=== PATIENT | male | born 1965 | race Hispanic/Latino ===

== ENCOUNTER 2020-04-05 13:04 | Emergency (ER) | payer BC ==
[~2020-04-05] VITALS: Ht 165.1 cm; Wt 70.5 kg
[~2020-04-05 13:04] MED LIST: NEO-SYNEPHRI0.05 %; NO HOME MEDS; NORVASC PO
[2020-04-05] MEDS ORDERED: LISINOPRIL10 M1 PO (13:42)
[2020-04-05] MEDS ORDERED: ATORVASTATIN CA20 MG PO (13:42)
[2020-04-05 13:52] LABS: HEMATOCRIT 36.3 % (39.0-50.0); HEMOGLOBIN 12.1 g/dl (14.0-18.0); MEAN CELL VOLUME 101.4 fL CALC (80.0-100.0); MEAN CORPUSCULAR HGB 33.8 pG CALC (26.0-32.0); MEAN CORPUSCULAR HGB CONC 33.3 g/dL CAL (32.0-36.0); NEUT# 1.27 thou/uL (1.82-7.42); RED BLOOD COUNT 3.58 mill/uL (4.70-6.10); RED CELL DISTRI WIDTH 14.9 % (11.5-15.5)
[2020-04-05 14:02] LABS: ALBUMIN 4.4 g/dL (3.2-5.0); ALKALINE PHOSPHATASE 128 u/l (38-126); ANION GAP 17 (6-22 (CALC)); BILIRUBIN, TOTAL 0.3 mg/dL (0.0-1.4); BUN 10 mg/dL (9-20); BUN/CREATININE RATIO 16 (12-20 (CALC)); CARBON DIOXIDE 23 mmol/l (22-30); CHLORIDE 103 mmol/l (95-108); CREATININE 0.6 mg/dL (0.7-1.3); ETHYL ALCOHOL 222 mg/dl (0-30); GFR > 60 ML/MIN (>=60 (CALC)); GFR FOR AFR.AMER. > 60 ML/MIN (>=60 (CALC)); POTASSIUM 4.2 mmol/l (3.5-5.1); SGOT/AST 75 u/l (17-59); SODIUM 139 mmol/l (137-146); TOTAL PROTEIN 8.3 g/dL (6.3-8.2)
[2020-04-05 15:06] LABS: URINE BILIRUBIN - DIPSTICK NEGATIVE (NEGATIVE); URINE BLOOD DIPSTICK NEGATIVE (NEGATIVE); URINE COLOR YELLOW; URINE GLUCOSE - DIPSTICK NEGATIVE (NEGATIVE); URINE KETONE NEGATIVE (NEGATIVE); URINE LEUK ESTERASE NEGATIVE (NEGATIVE); URINE NITRITE - DIPSTICK NEGATIVE (Negative); URINE PROTEIN - DIPSTICK NEGATIVE (NEG-TRACE); URINE UROBILINOGEN - DIPSTICK 0.2 E.U./dL (0.2)
[2020-04-05 17:10] VITALS: BP 142/63
== END 2020-04-05 17:10 | disposition short-term general hospital (02) | DRG 66 ==
LOC: ED 13:04
DX: I62.00 Nontraumatic subdural hemorrhage, unspecified (principal); F10.20 Alcohol dependence, uncomplicated; R25.1 Tremor, unspecified; I10 Essential (primary) hypertension

== ENCOUNTER 2022-09-02 22:23 | Emergency (ER) | payer OTHER ==
[~2022-09-02] VITALS: Ht 165.1 cm; Wt 75.7 kg
[~2022-09-02 22:23] MED LIST changes: +ATORVASTATIN CA20 MG PO; +LISINOPRIL10 M1 PO
[2022-09-02 22:33] VITALS: BP 131/79
[2022-09-02 22:46] VITALS: BP 119/67
[2022-09-02 23:00] VITALS: BP 124/80
[2022-09-02 23:15] VITALS: BP 116/79
[2022-09-02 23:30] VITALS: BP 119/70
[2022-09-03] MEDS ORDERED: METHOCARBAMOL500 MG PO (00:23)
[2022-09-03 00:58] VITALS: BP 119/70
== END 2022-09-03 01:06 | disposition home or self-care (01) | DRG 556 ==
LOC: ED 22:23
DX: M25.512 Pain in left shoulder (principal); M54.2 Cervicalgia; V43.52XA Car driver injured in collision with other type car in traffic accident, initial encounter; I10 Essential (primary) hypertension

== ENCOUNTER 2022-12-15 03:12 | Emergency (ER) | payer SELFPAY ==
[~2022-12-15] VITALS: Ht 165.1 cm; Wt 77.0 kg
[~2022-12-15 03:12] MED LIST changes: +METHOCARBAMOL500 MG PO
[2022-12-15 03:45] VITALS: BP 140/72
== END 2022-12-15 03:57 | disposition home or self-care (01) | DRG 151 ==
LOC: ED 03:12
DX: R04.0 Epistaxis (principal)

== ENCOUNTER 2022-12-17 07:52 | Emergency (ER) | payer SELFPAY ==
[~2022-12-17] VITALS: Ht 165.1 cm; Wt 81.0 kg
[2022-12-17 07:57] VITALS: BP 127/67
[2022-12-17 08:00] VITALS: BP 120/70
[2022-12-17 08:15] VITALS: BP 116/74
[2022-12-17 08:30] VITALS: BP 126/70
[2022-12-17] MEDS ORDERED: CEPHALEXIN500 MG PO (08:33)
[2022-12-17] MEDS ORDERED: BACTRIM DS1 TAB PO (08:33)
[2022-12-17 08:42] VITALS: BP 126/70
== END 2022-12-17 08:45 | disposition home or self-care (01) | DRG 951 ==
LOC: ED 07:52
DX: Z48.00 Encounter for change or removal of nonsurgical wound dressing (principal); L03.115 Cellulitis of right lower limb; I10 Essential (primary) hypertension; E78.00 Pure hypercholesterolemia, unspecified